=== PATIENT | female | born 1980 | race Caucasian/White ===

== ENCOUNTER 2018-01-09 17:56 | Emergency (ER) | payer OTHER ==
[~2018-01-09] VITALS: Ht 172.7 cm; Wt 83.9 kg
[2018-01-09 18:05] VITALS: BP 132/77
[2018-01-09] MEDS ORDERED: HYDR-971 PO (18:43)
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
[2018-01-09] MEDS ORDERED: ACETAMINOPHEN 325 MG TABLET PO ONE (18:45)
[2018-01-09] MEDS ORDERED: IBUPROFEN 800 MG TABLET. PO ONE (18:45)
[2018-01-09] MEDS ORDERED: DIPHTH,PERTUSS(ACELL),TET TOX 0.5 ML DISP.SYRIN. VAX IM ONE (18:45)
[2018-01-09] MEDS ORDERED: BACITRACIN ZINC TOPICAL OINT PACKET. TP ONE (18:45)
== END 2018-01-09 19:12 | disposition home or self-care (01) ==
LOC: ER 17:56
DX: T23.201A Burn of second degree of right hand, unspecified site, initial encounter (principal); Z88.2 Allergy status to sulfonamides; Z88.8 Allergy status to other drugs, medicaments and biological substances; X15.2XXA Contact with hotplate, initial encounter; Y93.89 Activity, other specified; Y99.8 Other external cause status; Y92.89 Other specified places as the place of occurrence of the external cause
CPT/HCPCS: 16020; 90471; 90715; 99284-25

== ENCOUNTER → 2018-03-14 | Outpatient (CLI) | payer OTHER ==
[~2018-03-14] VITALS: Ht 172.7 cm; Wt 88.5 kg
[~2018-03-14] MED LIST: HYDR-971 PO; NORMAL SALINE IV ONE; SINCALIDE IV ONE
--- NOTE | 2018-03-14 08:44 | RAD ---
Limited ultrasound abdomen 03/14/2018 INDICATION: Epigastric abdominal pain and bloating. Constipation and diarrhea. COMPARISON: None available. TECHNIQUE: Sonographic evaluation of the right upper quadrant was performed utilizing grayscale and color Doppler. FINDINGS: The pancreas is normal as visualized. IVC is patent. There is a left hepatic lobe hyperechoic lesion measuring 1.6 x 1.6 x 1.5 cm with well-circumscribed margins. Within the right hepatic lobe, there is a heterogeneous mass with ill-defined margins and mixed central echogenicity measuring 8.2 x 7.0 x 5.8 cm. There is no intrahepatic or extrahepatic bladder ductal dilatation. There is normal contour of the hepatic parenchyma. Mild increased echogenicity of the hepatic parenchyma may be seen in the setting of hepatocellular disease, most commonly hepatic steatosis. Gallbladder is normal in appearance without evidence for gallstones, gallbladder wall thickening or pericholecystic fluid. The common bile duct measures 3 mm. Right kidney measures 10.1 x 5.6 x 4.9 cm. There is normal cortical medullary differentiation. There is no hydronephrosis. No suspicious renal mass. No renal calculi are identified. There is no free fluid in the abdomen. IMPRESSION: 1. There is a heterogeneous mass in the right hepatic lobe measuring 8.2 x 7.0 x 5.8 cm. Differential considerations would include a hepatic hemangioma, hepatic adenoma versus hepatic malignancy such as metastasis. Correlate with hepatobiliary enzymes. Further evaluation with abdominal MRI with and without contrast is recommended. 2. Hyperechoic 1.6 x 1.6 x 1.5 cm mass in the left hepatic lobe has imaging characteristics most suggestive of a hepatic hemangioma. However, hepatic adenomas may have similar appearance. Attention on MRI is recommended. 3. Mild increased echogenicity of the hepatic parenchyma may be seen in setting of hepatocellular disease, most commonly hepatic steatosis. 4. No evidence for cholelithiasis. Electronically signed by: Tonia Aldana MD (03/14/2018 8:40 AM) [id number]
--- NOTE | 2018-03-14 11:01 | RAD ---
HEPATOBILIARY SCAN WITH EJECTION FRACTION 03/14/2018 10:55 AM History: nausea, bloating, epigastric pain for 5 years. Procedure: Serial static images are obtained of the liver and biliary system in the frontal projection following IV administration of 5.5 mCi of Technetium 99m Choletec. After filling of the gallbladder, 1.77 mcg of sincalide were infused over 30 minutes and dynamic imaging continued over this period. The gallbladder ejection fraction was calculated.Patient was noted to have sensation of bloating and epigastric pain during CCK infusion. Findings: There is prompt hepatic clearance of tracer from the blood pool. There is homogeneous distribution throughout the liver. The gallbladder ejection fraction measures 12% (normal gallbladder EF is 35% or greater). IMPRESSION: 1. The cystic duct and common bile duct are patent. Negative for acute cholecystitis. 2. The gallbladder ejection fraction is abnormal measuring 12%. Findings may indicate chronic cholecystitis or gallbladder dyskinesia. Electronically signed by: Dale Jeetr MD (03/14/2018 10:57 AM) [id number]
== END | disposition home or self-care (01) ==
LOC: US 07:27
PROVIDERS: ATTEND Internal Medicine Gastroenterology
DX: R16.0 Hepatomegaly, not elsewhere classified (principal); R11.0 Nausea
CPT/HCPCS: 76705; 78226; 96374; 96375; A9537; J2805